=== PATIENT | female | born 1950 | race Caucasian/White ===

== ENCOUNTER 2024-01-22 09:23 | Outpatient (CLI) | payer MEDICARE | END 2024-01-22 09:24 | disposition home or self-care (01) | LOC: BICRAD 09:23 | PROVIDERS: ATTEND Nurse Practitioner Family | DX: Z04.3 Encounter for examination and observation following other accident (principal); W19.XXXA Unspecified fall, initial encounter; M47.816 Spondylosis without myelopathy or radiculopathy, lumbar region; R91.8 Other nonspecific abnormal finding of lung field; J94.8 Other specified pleural conditions | CPT/HCPCS: 71046; 72072; 72100 ==

== ENCOUNTER 2024-01-27 08:29 | Outpatient (CLI) | payer MEDICARE | END 2024-01-27 08:30 | disposition home or self-care (01) | LOC: BICCT 08:29 | PROVIDERS: ATTEND Nurse Practitioner Family | DX: R91.8 Other nonspecific abnormal finding of lung field (principal); J90 Pleural effusion, not elsewhere classified; S22.42XA Multiple fractures of ribs, left side, initial encounter for closed fracture; J98.11 Atelectasis | CPT/HCPCS: 36415; 71260; 82565 ==